=== PATIENT | female | born 1985 | race Caucasian/White ===

== ENCOUNTER 2016-07-10 10:10 | Emergency (ER) | payer OTHER ==
[2016-07-10 11:13] VITALS: BP 141/71
--- NOTE | 2016-07-10 11:50 | UC ---
Knee Pain HPI - HPI Summary HPI Summary: right knee pain x 2 days , + injury , was doing jumping emily and hear a loud pop on her right knee + swelling, pain , limited rom - History of Current Complaint Chief Complaint: UCLowerExtremity Stated Complaint: RIGHT KNEE PAIN Time Seen by Provider: 07/10/16 11:24 Hx Obtained From: Patient Hx Last Menstrual Period: 06/26/16 ?: No Onset/Duration: Sudden Onset, Lasting Days - 2, Still Present Severity Initially: Moderate Severity Currently: Moderate Character: Aching Aggravating Factor(s): Movement, Weight Bearing, Stairs Alleviating Factor(s): Rest, Cold Associated Signs And Symptoms: Positive: Swelling, Weakness. Negative: Redness , Bruising - Allergies/Home Medications Allergies/Adverse Reactions: Allergies Allergy/AdvReac Type Severity Reaction Status Date / Time Latex Allergy Blisters Verified 07/10/16 11:06 Home Medications: Home Medications Spironolactone TAB* [Aldactone TAB*] 50 mg PO DAILY 07/10/16 [History Confirmed 07/10/16] PMH/Surg Hx/FS Hx/Imm Hx Endocrine History Of: Denies: Diabetes Cardiovascular History Of: Reports: Hypertension Respiratory History Of: Reports: Asthma Cancer History Of: Denies: Breast Cancer - Surgical History Surgical History: Yes Surgery Procedure, Year, and Place: tubal ligation - Family History Known Family History: Positive: None Negative: Diabetes - Social History Alcohol Use: Rare Substance Use Type: Excessive Caffeine Smoking Status (MU): Former Smoker When Did the Patient Quit Smoking/Using Tobacco: 2007 Review of Systems Constitutional: Negative Skin: Negative Eyes: Negative ENT: Negative Respiratory: Negative Cardiovascular: Negative Musculoskeletal: Other: - right knee pain All Other Systems Reviewed And Are Negative: Yes Physical Exam Triage Information Reviewed: Yes Appearance: Well-Appearing, No Pain Distress, Well-Nourished Vital Signs: Initial Vital Signs Temp 97.6 F 07/10/16 11:07 Pulse 73 07/10/16 11:07 Resp 16 07/10/16 11:07 BP 141/71 07/10/16 11:07 Pulse Ox 98 07/10/16 11:07 Vital Signs Reviewed: Yes Eye Exam: Normal Eyes: Positive: Conjunctiva Clear ENT: Positive: Normal ENT inspection, Hearing grossly normal, Pharynx normal Neck exam: Normal Neck: Positive: Supple, Nontender, No Lymphadenopathy Respiratory: Positive: Chest non-tender, Lungs clear, Normal breath sounds Cardiovascular: Positive: RRR, No Murmur, Pulses Normal, Brisk Capillary Refill Musculoskeletal: Positive: Other: - right knee : + effusion, + swelling, no erythem , no tenderness, + pain with knee flexion limited ROM on flexion, normal strength Knee Pain Course/Dx - Differential Dx/Diagnosis Provider Diagnoses: right knee pain. right knee effusion Discharge - Discharge Plan Condition: Stable Disposition: HOME Patient Education Materials: Swollen Knee Joint (ED), Knee Pain (ED) Referrals: Aislinn Kapadia MD [Primary Care Provider] - Alex Smart MD [Medical Doctor] - As Soon As Possible Additional Instructions: right knee pain / effusion cont. with rest, ice, elevation , take ibuprofen as needed for pain referral to ortho parmjit
--- NOTE | 2016-07-10 12:21 | RAD ---
INDICATION: Right knee pain COMPARISON: None TECHNIQUE: AP, lateral, tunnel, and sunrise views were obtained. FINDINGS: There are no acute bony findings. The knee articulates normally. There is a suprapatellar joint effusion. IMPRESSION: JOINT EFFUSION
== END 2016-07-10 12:26 | disposition home or self-care (01) ==
LOC: UCCORT 10:10
DX: M25.561 Pain in right knee (principal); M25.461 Effusion, right knee; I10 Essential (primary) hypertension; J45.909 Unspecified asthma, uncomplicated; Z91.040 Latex allergy status; Z87.891 Personal history of nicotine dependence
CPT/HCPCS: 99211; G0463